=== PATIENT | male | born 1990 | race Caucasian/White ===

== ENCOUNTER 2017-01-27 19:23 | Emergency (ER) | payer OTHER ==
[~2017-01-27] VITALS: Ht 182.9 cm; Wt 154.0 kg
[~2017-01-27 19:23] MED LIST: ACET-1256 PO; ALLO1TAB51 PO; CLC6 PO; PROB500T8 PO; TRIA0.1C20
[2017-01-27 19:28] VITALS: Ht 182.9 cm; Wt 154.0 kg
[2017-01-27] MEDS ORDERED: DiphenhydrAMINE HCL 50 MG/ML VIAL IV STA (19:43)
[2017-01-27] MEDS ORDERED: ONDANSETRON INJ 2 MG/ML 2 ML VIAL IV STA (19:43)
[2017-01-27] MEDS ORDERED: RANITIDINE HCL 150 MG TAB PO ONE (19:45)
[2017-01-27] MEDS ORDERED: DEXAMETHASONE SOD INJ 10 MG/ML VIAL IV ONE (19:45)
--- NOTE | 2017-01-27 19:47 | EMERGENCY ROOM VISIT NOTE ---
History Report prepared by Jeffery: Denton Lima Under the Supervision of: Dr. Justus De Guzman D.O. First contact with patient: 19:32 Chief Complaint: ILLNESS Stated Complaint: RASH,VOMITING,STOMACH PAIN,RED EYES History of Present Illness The patient is a 26 year old male who presents to the Emergency Room with complaints of persistent rash that started three nights ago. The patient initially noticed the rash on his arms and chest, which has spread to the rest of his body. The rash is itchy. The rash is worse in the heat. He saw his doctor two days ago and was started on Prednisone. 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 The patient notes that the rash improves somewhat then worsens. The patient also notes vomiting and decreased appetite. His tongue feels somewhat swollen and his throat feels tight. The patient denies any fevers or muscle aches. He has never had a reaction before. The patient denies any recent changes in his daily habits. He denies recent travel or unusual food consumption. He has not had any recent viral illnesses. The patient has history of gout. He is s/p wisdom teeth extraction. He occasionally drinks alcohol and does not use tobacco. Source of History: patient Onset: three nights ago Position: other (skin) Quality: other (itchy rash) Timing: other (persistent) Modifying Factors (Worsening): other (heat) Associated Symptoms: No fevers Review of Systems See HPI for pertinent positives & negatives. A total of 10 systems reviewed and were otherwise negative. Past Medical & Surgical Medical Problems: (1) Ankle pain (2) Gout (3) Morbid obesity with BMI of 50.0-59.9, adult Family History No pertinent family history Social History Smoking Status: Never Smoker Drug Use: none Marital Status: Occupation Status: employed Current/Historical Medications Scheduled Allopurinol (Allopurinol), 300 MG PO DAILY Methylprednisolone (Methylprednisolone Dose P), 1 DOSE PO UD Ondasetron Odt (Zofran Odt), 4 MG SL Q6H Ranitidine Hcl (Zantac), 150 MG PO BID Scheduled PRN Acetaminophen (Tylenol), 1,000 MG PO Q6H PRN for Pain or Fever Colchicine (Colchicine), 0.6 MG PO DAILY PRN for Gout Flare Up Diphenhydramine Hcl (Benadryl Allergy), 25 MG PO UD PRN for Allergy Symptoms Triamcinolone Acet (Aristocort 0.1%), 1 APPLN TOP BID PRN for Rash Allergies Coded Allergies: No Known Allergies (Unverified , NKA, 03/03/14) Physical Exam Vital Signs Date Time Temp Pulse Resp B/P (MAP) Pulse Ox O2 Delivery O2 Flow Rate FiO2 01/27/17 21:53 36.8 85 20 178/112 95 01/27/17 20:21 92 01/27/17 19:28 36.8 106 20 149/95 95 Room Air Physical Exam GENERAL: Patient is awake, alert, and in no acute distress. Patient is resting comfortably and showing no signs of anxiety EYES: The conjunctivae are clear. The pupils are round and reactive. EARS, NOSE, MOUTH AND THROAT: The nose is without any evidence of any deformity. Mucous membranes are moist tongue is midline NECK: The neck is nontender and supple. RESPIRATORY: Normal respiratory effort is noted there is no evidence of wheezing rhonchi or rales CARDIOVASCULAR: Regular rate and rhythm noted there no murmurs rubs or gallops normal S1 normal S2 GASTROINTESTINAL: The abdomen is soft. Bowel sounds are present in all quadrants. Abdomen is nontender MUSCULOSKELETAL/EXTREMITIES: There is no evidence of gross deformity full range of motion is noted in the hips and shoulders SKIN: Diffuse urticarial rash noted that blanches easily, venous stasis changed noted in both feet and ankles. NEUROLOGIC: Patient is awake alert and oriented x3. Medical Decision & Procedures ER Provider Diagnostic Interpretation: X-ray results as stated below per interpretation by me and the radiologist. CHEST ONE VIEW PORTABLE HISTORY: Generalized abdominal pain. COMPARISON: None. FINDINGS: No focal lung consolidations to suggest pneumonia. No evidence for edema. No pleural effusions. The heart is mildly enlarged. No pneumothorax. IMPRESSION: Mild cardiomegaly. Electronically signed by: Haider Garg M.D. 01/27/2017 8:35 PM Dictated Date/Time: 01/27/2017 8:33 PM Laboratory Results 01/27/17 19:38 Red Blood Count 5.22, Mean Corpuscular Volume 85.4, Mean Corpuscular Hemoglobin 28.4, Mean Corpuscular Hemoglobin Concent 33.2, Mean Platelet Volume 10.4, Neutrophils (%) (Auto) 78.4, Lymphocytes (%) (Auto) 15.2, Monocytes (%) (Auto) 5.0, Eosinophils (%) (Auto) 0.7, Basophils (%) (Auto) 0.1, Neutrophils # (Auto) 12.05, Lymphocytes # (Auto) 2.33, Monocytes # (Auto) 0.77, Eosinophils # (Auto) 0.11, Basophils # (Auto) 0.01 01/27/17 19:38 Test 01/27/17 19:38 01/27/17 20:40 White Blood Count 15.36 K/uL (4.8-10.8) Red Blood Count 5.22 M/uL (4.7-6.1) Hemoglobin 14.8 g/dL (14.0-18.0) Hematocrit 44.6 % (42-52) Mean Corpuscular Volume 85.4 fL (80-100) Mean Corpuscular Hemoglobin 28.4 pg (25-34) Mean Corpuscular Hemoglobin Concent 33.2 g/dl (32-36) Platelet Count 237 K/uL (130-400) Mean Platelet Volume 10.4 fL (7.4-10.4) Neutrophils (%) (Auto) 78.4 % Lymphocytes (%) (Auto) 15.2 % Monocytes (%) (Auto) 5.0 % Eosinophils (%) (Auto) 0.7 % Basophils (%) (Auto) 0.1 % Neutrophils # (Auto) 12.05 K/uL (1.4-6.5) Lymphocytes # (Auto) 2.33 K/uL (1.2-3.4) Monocytes # (Auto) 0.77 K/uL (0.11-0.59) Eosinophils # (Auto) 0.11 K/uL (0-0.5) Basophils # (Auto) 0.01 K/uL (0-0.2) RDW Standard Deviation 46.0 fL (36.4-46.3) RDW Coefficient of Variation 14.7 % (11.5-14.5) Immature Granulocyte % (Auto) 0.6 % Immature Granulocyte # (Auto) 0.09 K/uL (0.00-0.02) Anion Gap 10.0 mmol/L (3-11) Est Creatinine Clear Calc Drug Dose 153.0 ml/min Estimated GFR () 105.3 Estimated GFR (Non- 90.9 BUN/Creatinine Ratio 10.5 (10-20) Calcium Level 8.4 mg/dl (8.5-10.1) Total Bilirubin 0.8 mg/dl (0.2-1) Direct Bilirubin 0.2 mg/dl (0-0.2) Aspartate Amino Transf (AST/SGOT) 12 U/L (15-37) Alanine Aminotransferase (ALT/SGPT) 33 U/L (12-78) Alkaline Phosphatase 57 U/L (45-117) Total Protein 6.8 gm/dl (6.4-8.2) Albumin 3.7 gm/dl (3.4-5.0) Lipase 93 U/L (73-393) Urine Color YELLOW Urine Appearance CLEAR (CLEAR) Urine pH 5.5 (4.5-7.5) Urine Specific [place] 1.013 (1.000-1.030) Urine Protein NEG (NEG) Urine Glucose (UA) NEG (NEG) Urine Ketones NEG (NEG) Urine Occult Blood NEG (NEG) Urine Nitrite NEG (NEG) Urine Bilirubin NEG (NEG) Urine Urobilinogen NEG (NEG) Urine Leukocyte Esterase NEG (NEG) Laboratory results per my review. Medications Administered Medications (Trade) Dose Ordered Sig/Yeny Route Start Time Stop Time Status Last Admin Dose Admin Diphenhydramine HCl (Benadryl Inj) 25 mg NOW STAT IV 01/27/17 19:43 01/27/17 19:45 DC 01/27/17 19:48 25 MG Dexamethasone Sodium Phosphate (Decadron Inj) 10 mg NOW ONCE IV 01/27/17 19:45 01/27/17 19:46 DC 01/27/17 19:48 10 MG Ranitidine HCl (zANTac TAB) 150 mg NOW ONCE PO 01/27/17 19:45 01/27/17 19:46 DC 01/27/17 19:48 150 MG Ondansetron HCl (Zofran Inj) 4 mg NOW STAT IV 01/27/17 19:43 01/27/17 19:45 DC 01/27/17 19:48 4 MG ED Course 1939: The patient was evaluated in room A3. A complete history and physical examination were performed. 1942: Zofran 4 mg IV, Benadryl 25 mg IV. 1944: Zantac 150 mg PO, Decadron 10 mg IV. 2124: Reassessed the patient. Discussed the discharge instructions with the patient. He verbalized understanding and agreement. The patient is ready for discharge. Medical Decision Prior records/ancillary studies reviewed. Triage Nursing notes reviewed. The patient's history was concerning for possible allergic reaction. Differential diagnosis: Etiologies such as allergic reaction, anaphylaxis, urticaria, Cho-Jose syndrome, toxic epidermal necrolysis, erythema multiforme, cellulitis, as well as others were entertained. Blood pressure screening: Patient was found to have an elevated blood pressure and was referred to their primary doctor for recheck and further treatment. Medication Reconciliation: I attest that I have personally reviewed the patient' s current medications list. The patient is a 26-year-old male who presented to the emergency department for an evaluation of urticarial rash. The patient describes an urticarial rash which is been fluctuating over the last few days. He was seen by his primary care physician recently placed on medications. The patient also has been taking antihistamines with good relief. The patient complained of the sensation of tongue swelling but he does not appear to have any mucous membrane involvement or tongue swelling at this time. He had no stridor. The patient was treated with antihistamines in the emergency Department as well as IV steroids. I discussed the patient's laboratory results with him. He was encouraged to continue all medications as prescribed and also given other instructions on how to keep this rash from getting any worse. He was encouraged to return the emergency Department immediately if symptoms change worsen or the need arises. 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 Impression Primary Impression: [place] Scribe Attestation The scribe's documentation has been prepared under my direction and personally reviewed by me in its entirety. I confirm that the note above accurately reflects all work, treatment, procedures, and medical decision making performed by me. Departure Information Dispostion Home / Self-Care Prescriptions Ondasetron Odt (ZOFRAN ODT) 4 Mg Tab 4 MG SL Q6H for Nausea, #15 TAB Prov: Justus De Guzman, DO 01/27/17 Ranitidine Hcl (ZANTAC) 150 Mg Tab 150 MG PO BID, #60 TAB Prov: Justus De Guzman, DO 01/27/17 Referrals Natasha CORADO M.D. (PCP) Forms HOME CARE DOCUMENTATION FORM, IMPORTANT VISIT INFORMATION, WORK / SCHOOL INSTRUCTIONS Patient Instructions My [facility], [place] Additional Instructions Call your primary care physician in the morning to schedule a follow-up appointment. Continue all medications as prescribed. Return to the emergency department immediately if symptoms worsen or if the need arises.
[2017-01-27 19:50] LABS: BASO % 0.1 %; BASO ABS # 0.01 K/uL (0-0.2); COMPLETE YES; EOS % 0.7 %; HEMATOCRIT 44.6 % (42-52); IG% 0.6 %; LYMPH % 15.2 %; LYMPH ABS # 2.33 K/uL (1.2-3.4); MEAN CELL VOLUME 85.4 fL (80-100); MEAN CORPUSCULAR HEMOGLOBIN 28.4 pg (25-34); MEAN CORPUSCULAR HGB CONC 33.2 g/dl (32-36); MEAN PLATELET VOLUME 10.4 fL (7.4-10.4); NEUT % 78.4 %; PLATELET COUNT 237 K/uL (130-400); RED BLOOD COUNT 5.22 M/uL (4.7-6.1); WHITE BLOOD COUNT 15.36 K/uL (4.8-10.8)
[2017-01-27] MEDS ORDERED: COLC1TAB25 PO (19:57)
[2017-01-27] MEDS ORDERED: TRMCR130WC TOP (19:57)
[2017-01-27] MEDS ORDERED: ALL300 PO (19:57)
[2017-01-27] MEDS ORDERED: DIPH1TAB87 PO (19:57)
[2017-01-27] MEDS ORDERED: MDRDP21 PO (19:57)
[2017-01-27 20:09] LABS: BUN/CREATININE RATIO 10.5 (10-20); CALCIUM 8.4 mg/dl (8.5-10.1); CREATININE 1.1 mg/dl (0.60-1.40); POTASSIUM 3.6 mmol/L (3.5-5.1)
--- NOTE | 2017-01-27 20:36 | DIAGNOSTIC IMAGING REPORT ---
CHEST ONE VIEW PORTABLE HISTORY: Generalized abdominal pain. COMPARISON: None. FINDINGS: No focal lung consolidations to suggest pneumonia. No evidence for edema. No pleural effusions. The heart is mildly enlarged. No pneumothorax. IMPRESSION: Mild cardiomegaly. Electronically signed by: Haider Garg M.D. 01/27/2017 8:35 PM Dictated Date/Time: 01/27/2017 8:33 PM
[2017-01-27 20:57] LABS: URINE APPEARANCE CLEAR (CLEAR); URINE BILIRUBIN NEG (NEG); URINE COLOR YELLOW; URINE NITRITE NEG (NEG); URINE PH 5.5 (4.5-7.5); URINE SPECIFIC GRAVITY 1.013 (1.000-1.030); UROBILINOGEN NEG (NEG)
[2017-01-27 21:12] LABS: MANUAL MICROSCOPIC REQUIRED? NO; REVIEW REQ? NO
[2017-01-27] MEDS ORDERED: RANI150T3 PO (21:28)
[2017-01-27] MEDS ORDERED: ONDA4TAB10 SL (21:28)
[2017-01-27 21:53] VITALS: BP 178/112; PULSE 85; TEMP 36.8; O2SAT 95
== END 2017-01-27 21:54 | disposition home or self-care (01) ==
LOC: C.EDB 19:24 → C.EDA 21:54
DX: L50.9 Urticaria, unspecified (principal); R11.10 Vomiting, unspecified; R10.9 Unspecified abdominal pain; I51.7 Cardiomegaly; E66.01 Morbid (severe) obesity due to excess calories; Z68.43 Body mass index [BMI] 50.0-59.9, adult

== ENCOUNTER → 2017-11-18 | Day surgery (SDC) | payer OTHER ==
[~2017-11-18] VITALS: Ht 182.9 cm; Wt 184.6 kg
[~2017-11-18] MED LIST changes: +ALL300 PO; -ALLO1TAB51 PO; -CLC6 PO; +COLC1TAB25 PO; +DIPH1TAB87 PO; +LIDOCAINE HCL 2% 2 ML VIAL (20MG/ML) ONE; +MDRDP21 PO; +MIDAZOLAM HCL 1 MG/ML 2ML VIAL ONE; -PROB500T8 PO; +PROPOFOL IV EMULSION 10 MG/ML 20 ML VIAL IV ONE; +SODIUM CHLORIDE 0.9% 500ML 500 ML IV ONE; -TRIA0.1C20; +TRMCR130WC TOP
[2017-11-18 10:00] VITALS: Ht 182.9 cm; Wt 184.6 kg
--- NOTE | 2017-11-18 10:26 | Endo History and Physical ---
History & Physical Date of Service: Nov 18, 2017. Chief Complaint: Referring Physician: Dr. Gleason History of Present Illness Pt with GI bleeding and melena history Past Surgical History Hx Cardiac Surgery: No Hx Abdominal Surgery: No Hx Orthopedic: No Hx Urinary Tract Surgery: No Social History Smoking Status: Never Smoker Allergies Coded Allergies: No Known Allergies (Unverified , NKA, 03/03/14) Current Medications Reported Home Medications Medications Dose Route/Sig Max Daily Dose Days Date Category Dose Instructions Benadryl Allergy (Diphenhydramine Hcl) 25 Mg Tab 25 Mg PO UD PRN 01/27/17 Reported TAKE PER PACKAGE DIRECTIONS Colchicine 0.6 Mg Tab 0.6 Mg PO DAILY PRN 01/27/17 Reported Allopurinol 300 Mg Tab 300 Mg PO DAILY 01/27/17 Reported Aristocort 0.1% (Triamcinolone Acet) 90 Appln/30 Gm Cr 1 Appln TOP BID PRN 01/27/17 Reported APPLY DIRECTED TO RASH Methylprednisolone Dose P (Methylprednisolone) 1 Pkt Tab 1 Dose PO UD 01/27/17 Reported TAPER DOWN DOSING PRESCRIBED 01/25/2017, TAKE DIRECTED UNTIL GONE. Tylenol (Acetaminophen) 500 Mg Tab 1,000 Mg PO Q6H PRN 01/30/14 Reported Physical Exam General Appearance: no apparent distress Respiratory/Chest: Auscultation: breath sounds normal Cardiovascular: Heart Auscultation: RRR Abdomen: Inspection & Palpation: soft, non-distended Assessment and Plan stable for EGD/[facility]
--- NOTE | 2017-11-18 11:03 | Discharge Instructions ---
Endoscopy Patient Instructions Date / Procedure(s) Performed Nov 18, 2017. Colonoscopy, EGD Allergy Information Coded Allergies: No Known Allergies (Unverified , NKA, 03/03/14) Discharge Date / Findings Nov 18, 2017. Small colon polyp removed/mild reflux esophagitis Provider Instructions Activity Restrictions - No exercising or heavy lifting for 24 hours. - Do not drink alcohol the day of the procedure. - Do not drive a car or operate machinery until the day after the procedure. - Do not make any important decisions or sign important papers in 24 hours after the procedure. Following Day: - Return to full activity which may include returning to work/school. Diet Start your diet with liquids and light foods (jello, soup, juice, toast). Then eat your usual diet if not nauseated. Treatment For Common After Affects For mild abdominal pain, bloating, or excessive gas: - Rest - Eat lightly - Lie on right side Follow-Up Information Follow-up with Natasha Gleason as scheduled Anesthesia Information What You Should Know You have had a procedure that required some medicine to reduce anxiety and discomfort. This treatment is called moderate sedation. After receiving the treatment, you may be sleepy, but you will be able to breathe on your own. The effects of the treatment may last for several hours. Follow these instructions along with Activity/Diet recommendations noted above: * Do NOT do anything where dizziness or clumsiness would be dangerous. * Rest quietly at home today, then you can be up and about tomorrow. * Have a responsible person stay with you the rest of today. * You may have had an I.V. today. If so, you may take the dressing off later today. Recommendations Call your doctor if: * Trouble breathing * Continuous vomiting for more than 24 hours * Temperature above 101 degrees * Severe abdominal pain or bloating * Pain not relieved by pain medicine ordered * There is increased drainage or redness from any incision * A large amount of rectal bleeding greater than 2-3 tablespoons. (If you had a polyp/s removed or have hemorrhoids, a small amount of blood - from the rectum is to be expected.) * You have any unanswered questions or concerns. IN THE EVENT OF A SERIOUS EMERGENCY, GO TO THE NEAREST EMERGENCY ROOM Your discharge instructions were prepared by provider Joaquin Alegria. Patient Instructions Signature Page Kenyon Velasco Patient (or Guardian) Signature/Date: I have read and understand the instructions given to me by my caregivers. Caregiver/RN/Doctor Signature/Date: The above-named patient and/or guardian has received patient instructions on this date. + Original Patient Signature Page (only) stays with chart. Please make copy for patient.
--- NOTE | 2017-11-18 11:07 | Anesthesiology Progress Note ---
Anesthesia Post Op Note Date & Time Nov 18, 2017 at 11:07 Vital Signs Pain Intensity: 0 Vital Signs Past 12 Hours Date Time Temp Pulse Resp B/P (MAP) Pulse Ox O2 Delivery O2 Flow Rate FiO2 11/18/17 10:20 36.7 91 18 130/90 (103) 98 Room Air Notes Mental Status: alert / awake / arousable, participated in evaluation Pt Amnestic to Procedure: Yes Nausea / Vomiting: adequately controlled Pain: adequately controlled Airway Patency, RR, SpO2: stable & adequate BP & HR: stable & adequate Hydration State: stable & adequate Anesthetic Complications: no major complications apparent
[2017-11-18 11:33] VITALS: BP 138/89; PULSE 86; O2SAT 98
--- NOTE | 2017-11-18 12:02 | GI REPORT ---
Procedure Date: 11/18/2017 10:06 AM Procedure: Upper GI endoscopy Indications: Melena Medicines: See the Anesthesia note for documentation of the administered medications Complications: No immediate complications. Estimated Blood Loss: Estimated blood loss: none. Procedure: Pre-Anesthesia Assessment: - Prior to the procedure, a History and Physical was performed, and patient medications, allergies and sensitivities were reviewed. The patient's tolerance of previous anesthesia was reviewed. - The risks and benefits of the procedure and the sedation options and risks were discussed with the patient. All questions were answered and informed consent was obtained. - Patient identification and proposed procedure were verified prior to the procedure by the physician and the nurse. The procedure was verified in the pre-procedure area. - Pre-procedure physical examination revealed no contraindications to sedation. - After reviewing the risks and benefits, the patient was deemed in satisfactory condition to undergo the procedure. After obtaining informed consent, the endoscope was passed under direct vision. Throughout the procedure, the patient's blood pressure, pulse, and oxygen saturations were monitored continuously. The scope was introduced through the mouth, and advanced to the third part of duodenum. The upper GI endoscopy was accomplished without difficulty. The patient tolerated the procedure well. Findings: LA Grade A (one or more mucosal breaks less than 5 mm, not extending between tops of 2 mucosal folds) esophagitis was found. The stomach was normal. The examined duodenum was normal. The cardia and gastric fundus were normal on retroflexion. Impression: - Mild reflux esophagitis. - Normal stomach. - Normal examined duodenum. - No specimens collected. - No bleeding seen. Recommendation: - Perform a colonoscopy today. Joaquin Alegria M.D. Joaquin Alegria MD 11/18/2017 12:02:39 PM This report has been signed electronically. Note Initiated On: 11/18/2017 10:06 AM I attest to the content of the Intraoperative Record and orders documented therein, exceptions below
--- NOTE | 2017-11-18 12:04 | GI REPORT ---
Procedure Date: 11/18/2017 10:43 AM Procedure: Colonoscopy Indications: Melena, Rectal bleeding Medicines: See the Anesthesia note for documentation of the administered medications Complications: No immediate complications. Estimated Blood Loss: Estimated blood loss was minimal. Procedure: Pre-Anesthesia Assessment: - See the other procedure note for documentation of the pre-procedure assessment. After I obtained informed consent, the scope was passed under direct vision. Throughout the procedure, the patient's blood pressure, pulse, and oxygen saturations were monitored continuously. The scope was introduced through the anus and advanced to the terminal ileum, with identification of the appendiceal orifice and IC valve. The colonoscopy was performed without difficulty. The patient tolerated the procedure well. The quality of the bowel preparation was good. Findings: The perianal and digital rectal examinations were normal. The terminal ileum appeared normal. A 4 mm polyp was found at 20 cm proximal to the anus. The polyp was sessile. The polyp was removed with a cold snare. Resection and retrieval were complete. Verification of patient identification for the specimen was done by the physician and nurse using the patient's name and medical record number. Estimated blood loss was minimal. Internal hemorrhoids were found during retroflexion. The hemorrhoids were small. The exam was otherwise without abnormality on direct and retroflexion views. Impression: - The examined portion of the ileum was normal. - One 4 mm polyp at 20 cm proximal to the anus, removed with a cold snare. Resected and retrieved. - Internal hemorrhoids. - The examination was otherwise normal on direct and retroflexion views. - No evidence of IBD. Recommendation: - Await pathology results. - Discharge patient to home. Joaquin lAegria M.D. Joaquin Alegria MD 11/18/2017 12:04:39 PM This report has been signed electronically. Note Initiated On: 11/18/2017 10:43 AM I attest to the content of the Intraoperative Record and orders documented therein, exceptions below
== END | disposition home or self-care (01) ==
LOC: C.GI 09:13
PROVIDERS: ATTEND Internal Medicine Gastroenterology
DX: K62.5 Hemorrhage of anus and rectum (principal); K64.8 Other hemorrhoids; D12.6 Benign neoplasm of colon, unspecified; K21.0 Gastro-esophageal reflux disease with esophagitis; E66.01 Morbid (severe) obesity due to excess calories; Z68.43 Body mass index [BMI] 50.0-59.9, adult